=== PATIENT | female | born 1995 | race Caucasian/White ===

== ENCOUNTER 2019-07-17 13:18 | Emergency (ER) | payer BC, MEDICAID ==
[~2019-07-17] VITALS: Ht 160 cm; Wt 52.5 kg
[2019-07-17 13:58] LABS: BASOPHILS % (AUTO) 0.4 % (0-1); EOSINOPHILS # (AUTO) 0.1 X10'3 (0-0.9); EOSINOPHILS % (AUTO) 1.4 % (0-6); HEMATOCRIT 40.1 % (35.0-45.0); HEMOGLOBIN 13.9 g/dl (12.0-16.0); LYMPHOCYTES # (AUTO) 0.7 X10'3 (1.1-4.8); LYMPHOCYTES % (AUTO) 7.9 % (21-51); MEAN CORPUSCULAR HEMOGLOBIN 32.8 PG (27.0-31.0); MEAN CORPUSCULAR HGB CONC 34.6 g/dL (33.0-36.5); MEAN PLATELET VOLUME 7.6 FL (7.4-10.4); MONOCYTES # (AUTO) 0.7 X10'3 (0-0.9); NEUTROPHILS # (AUTO) 7.7 X10'3 (1.8-7.7); NEUTROPHILS % (AUTO) 83.3 % (42-75); PLATELET COUNT 239 X10'3 (140-440); RED BLOOD COUNT 4.22 X10'6 (4.20-5.60); WHITE BLOOD COUNT 9.3 X10'3 (4.5-11.0)
[2019-07-17 14:05] LABS: URINE HCG NEGATIVE (NEG)
[2019-07-17 14:07] LABS: CLARITY,URINE CLOUDY (Clear); COLOR,URINE YELLOW (Yellow); GLUCOSE, URINE NEGATIVE (Neg); KETONES,URINE 40 mg/dl (Neg); LEUKOCYTE ESTERASE ,URINE NEGATIVE (Neg); NITRITES, URINE NEGATIVE (Neg); OCCULT BLOOD,URINE NEGATIVE (Neg); PH,URINE 5.5 (4.8-8.0); PROTEIN,URINE NEGATIVE (Neg); UROBILINOGEN,URINE 0.2 E.U/dL (0.2-1.0)
[2019-07-17 14:08] LABS: UA COLLECTION TYPE CLN CATCH MIDSTREAM
[2019-07-17 14:16] LABS: ALANINE AMINOTRANSFERASE 19 U/L (12-78); ALBUMIN/GLOBULIN RATIO 1.2 (1.1-1.5); ALKALINE PHOSPHATASE 67 IU/L (46-116); ANION GAP 9 (8-16); ASPARTATE AMINO TRANSFERASE 15 U/L (10-37); BILIRUBIN,TOTAL 0.7 MG/DL (0.1-1.0); BLOOD UREA NITROGEN 12 MG/DL (7-18); BUN/CREATININE RATIO 16.7 (6.6-38.0); CALCIUM 8.3 MG/DL (8.5-10.1); CHLORIDE 105 MMOL/L (99-107); CREATININE 0.72 MG/DL (0.40-0.90); GLUCOSE 85 MG/DL (70-104); POTASSIUM 3.7 MMOL/L (3.5-5.1); SODIUM 140 MMOL/L (135-145); TOTAL PROTEIN 7.4 G/DL (6.4-8.2); eGFR > 90 ML/MIN
[2019-07-17 14:24] LABS: MUCUS STRANDS MANY /LPF (Neg); SQUAMOUS EPITHELIAL CELL,UR MANY /LPF (FEW)
[2019-07-17 14:25] LABS: BACTERIA,URINE FEW /HPF (Neg); RBC,URINE 0-2 /HPF (0-2); WBC,URINE 0-4 /HPF (0-4)
[2019-07-17 15:04] VITALS: BP 96/47
== END 2019-07-17 15:05 | disposition home or self-care (01) ==
LOC: ER 13:19
DX: R10.30 Lower abdominal pain, unspecified (principal); F17.200 Nicotine dependence, unspecified, uncomplicated; Z98.890 Other specified postprocedural states
CPT/HCPCS: 36415; 80053; 81001; 81025; 85025; 85610; 99283

== ENCOUNTER 2024-09-20 16:20 | Emergency (ER) | payer MEDICAID, OTHER ==
[~2024-09-20] VITALS: Ht 160 cm; Wt 56.8 kg
[2024-09-20 16:27] VITALS: BP 101/60; PULSE 95; RESP 16; TEMP 98.2; O2SAT 97
== END 2024-09-20 17:31 ==
LOC: ER 16:20
DX: Z00.00 Encounter for general adult medical examination without abnormal findings (principal); Z98.890 Other specified postprocedural states
CPT/HCPCS: 99283

== ENCOUNTER 2025-03-09 22:25 | Emergency (ER) | payer BC, OTHER ==
[~2025-03-09] VITALS: Ht 165.1 cm; Wt 54.6 kg
[2025-03-09 22:26] VITALS: BP 110/72; TEMP 97.6
--- NOTE | 2025-03-09 22:34 | ELECTROCARDIOGRAPH REPORT ---
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
[2025-03-09] MEDS: ipratropium/albuterol 3ml nebule NEB STA (22:42)
[2025-03-09 22:44] VITALS: PULSE 75; RESP 18; O2SAT 98
[2025-03-09] MEDS ORDERED: diphenhydrAMINE 50 mg/ml inj IM ONE (22:45)
[2025-03-09] MEDS ORDERED: albuterol 2.5 MG/3 ML nebule CONTNEB PRN (22:45)
[2025-03-09 22:50] VITALS: PULSE 74; RESP 17
--- NOTE | 2025-03-09 23:15 | Physician Documentation ---
History of Present Illness ~ Chief Complaint: Shortness of Breath Stated Complaint: HARD TIME BREATHING OK to notify your PCP?: Yes Primary Medical Doctor: NONE Source: patient Mode of Arrival: POV Exam Limitations: no limitations HPI 29-year-old female presents with shortness of breath and labored breathing after traveling back from [place]. She says she had really bad allergies and [place] and then when she was in the car ride here started having severe shortness of breath. 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 History of asthma or recent illness. Medication Reconciliation Allergies: Coded Allergies: No Known Allergies (Unverified , 03/09/25) Past Medical History Past Medical History: No Pertinent History Past Surgical History: Alcohol Use: Occasionally Drug Use: none Lives In: Home Occupation: employed Review of Systems All Other Systems at this time: Reviewed and Negative Physical Exam Vital Signs: RN Vital Signs have been reviewed: Yes, Temperature: 97.6, Source: Temporal, Heart Rate: 72, Respiratory Rate: 21, BP: 110/72, Pulse Oximetry: 100, Weight: 54.600 Pulse Oximetry Reflects: adequate oxygenation Physical Exam General: Alert, mild distress. HEENT: No injection, moist mucous membranes. Neck: Full range of motion. Respiratory: respiratory distress, bilateral wheezing throughout. Chest: No accessory muscle use. Cardiovascular: Regular rate and rhythm. Gastrointestinal: Nondistended. Extremities: Normal range of motion, no deformity. Neurologic: Oriented x4. Psychiatric: Normal mood and affect. Skin: Normal color, warm and dry. Progress Results/Orders Results/Orders Completed Orders - KAYLEY GUERRA [employer] INSPECT[employer] REPAIRER Ipratropium/Albuterol Nebule (Ipratrop/A (03/09/25 22:32) Medications Received in ER Medications (Trade) Dose Ordered Sig/Donald Route PRN Reason Start Time Stop Time Status Last Admin Dose Admin (ipratrop/ albuterol 0.5-3(2.5) MG/3ml nebule) 3 ml ONCE STAT NEB 03/09/25 22:32 03/09/25 22:33 DC 03/09/25 22:42 3 ML Vital Signs 03/09/25 03/09/25 03/09/25 22:26 22:44 22:50 Temp 97.6 Pulse 72 75 74 Resp 21 18 17 B/P (MAP) 110/72 Pulse Ox 100 98 O2 Delivery Room Air* Room Air* O2 Flow Rate 0 0 FiO2 21 21 Medical Decision Making Findings 29-year-old female presenting with shortness of breath and respiratory distress with excessive coughing after having really bad allergies in [place] for the past couple days and then driving here. She does vape and has received a new vape pen but it is a same brand is her usual brand and no new weight fluid. She does not have a history of asthma. On exam she was very wheezy bilaterally and a DuoNeb was ordered. After DuoNeb administration her breathing pattern improved and breath sounds were clear, she felt less distress, coughing lessened and felt that she could breathe normally again. We discussed that she should stop vaping and I prescribed an albuterol inhaler to use should this happen again from allergies. She should follow up with her primary care provider in the next 3 days and return back here for any new or worsening symptoms. I discussed this case with Dr. Henao, suggested using Benadryl and prednisone as well so these were ordered and given in the department before discharge. Differential Dx:Considerations: Include: anxiety, bronchitis, COPD, panic attack, pneumonia, upper resp. infection Departure Disposition: 01 HOME / SELF CARE / HOMELESS Impression: Primary Impression: Asthma Condition: Improved Discharge Instructions: Asthma, Adult, [id number] Additional Instructions: Please stop vaping. Follow up with her primary care provider in the next 3 days and return back here for new any new or worsening symptoms. You can use your new albuterol inhaler for any future flare-up such as this. Referrals: NO PRIMARY CARE PROVIDER (PCP) Prescriptions albuterol inhaler (Pro-Air Inhaler) 8.5 Gm Inhaler 2 PUFFS INH Q4HPRN PRN for wheezing for 30 Days, #18 GM Prov: KAYLEY GUERRA [facility] 03/09/25 Education Educated: Patient, Family Educated regarding: diagnosis, treatment, prognosis, need for follow up Additional Comment Medical Screen Exam This patient recieved a medical screening examination. After reviewing the individual's medical complaints with presenting symptoms and performing an appropriate physical examination, it was determined that no immediate life- threatening emergency medical condition is present. This individual is also not a women having contractions. Signature Scribe Signature: . Attestation: Scribed for Emergency,Department by Kayley Ramos NP . 03/09/25 23:35 KAYLEY GUERRA [facility] Mar 09, 2025 23:15
[2025-03-09] MEDS ORDERED: ALBU8HFA INH (23:23)
[2025-03-09] MEDS: predniSONE 20 mg tablet PO ONE (23:32)
[2025-03-09] MEDS: diphenhydrAMINE 25mg capsule PO ONE (23:32)
== END 2025-03-09 23:38 | disposition home or self-care (01) ==
LOC: ER 22:25
DX: J45.909 Unspecified asthma, uncomplicated (principal); Z72.89 Other problems related to lifestyle
CPT/HCPCS: 93005; 94640; 99283; J7512; Q0163; 94760